=== PATIENT | female | born 1985 | race Caucasian/White ===

== ENCOUNTER 2020-05-31 18:12 | Emergency (ER) | payer MEDICAID, SELFPAY ==
[2020-05-31 20:30] VITALS: BP 119/74; PULSE 125; RESP 18; TEMP 37.2; O2SAT 97; BMI 29.9
[2020-05-31 22:27] LABS: Glucose Urine UA >=1000 MG/DL (NEG); Leukocyte Esterase Urine NEG (NEG); Nitrite Urine NEG (NEG); PH 5.5 (5.0-8.0); Urine Blood NEG (NEG); Urine Ketones 40 MG/DL (NEG); Urine Protein NEG (NEG-TRACE)
[2020-05-31 22:33] LABS: Appearance Urine CLEAR; Color Urine YELLOW
[2020-05-31 22:36] LABS: Bacteria Urine TRACE /LPF; RBC Urine 0 /HPF (0); Squamous Epithelial Cell Urine TRACE /LPF; WBC Urine 0 /HPF (0-4)
[2020-06-01 08:17] LABS: Glucose, Whole Blood 441 mg/dL (60-115)
[2020-06-01 08:19] LABS: Glucose, Whole Blood 513 mg/dL (60-115)
== END 2020-05-31 22:18 | disposition left against medical advice (07) ==
PROVIDERS: Emergency Provider Emergency Medicine
DX: E11.65 Type 2 diabetes mellitus with hyperglycemia (principal); Z79.4 Long term (current) use of insulin; Z96.41 Presence of insulin pump (external) (internal); R51.9 Headache, unspecified; R11.0 Nausea
CPT/HCPCS: 81001; 82947; 99282; 99283

== ENCOUNTER 2024-09-24 09:00 | Outpatient (RCR) | payer OTHER, SELFPAY | END 2024-09-24 16:49 | disposition home or self-care (01) | LOC: HO.WCC 09:00 | PROVIDERS: PCP Internal Medicine; Visit Provider Surgery | DX: Z09 Encounter for follow-up examination after completed treatment for conditions other than malignant neoplasm (principal); Z86.31 Personal history of diabetic foot ulcer | CPT/HCPCS: 11042; 99212; 99213; 99214 ==